=== PATIENT | male | born 1940 | race Caucasian/White ===

== ENCOUNTER 2023-02-17 11:07 | Outpatient (CLI) | payer OTHER, SELFPAY ==
[2023-02-17 13:56] LABS: Chloride* 105 mmol/L (96-114); Potassium* 4.3 mmol/L (3.6-5.1); Sodium* 140 mmol/L (135-149)
[2023-02-17 13:59] LABS: Blood Urea Nitrogen* 19 mg/dL (7-30); Carbon Dioxide* 29 mmol/L (20-32); Cholesterol* 198 mg/dL (90-199); Creatinine* 0.8 mg/dL (0.5-1.5); Estimated Glomerular Filt Rate 88 ml/min; Glucose* 123 mg/dL (60-115); Triglycerides* 178 mg/dL (40-149)
[2023-02-17 14:00] LABS: Calcium* 8.8 mg/dL (8.4-10.6); HDL Cholesterol* 44 mg/dL (>=40); LDL Cholesterol Calculated 118 mg/dL (<100)
[2023-02-17 16:02] LABS: Basophils Absolute Auto 0.05 K/uL (0.00-0.30); Basophils Percent Auto 0.7 % (0.0-3.0); Eosinophils Absolute Auto 0.16 K/uL (0.00-0.50); Eosinophils Percent Auto 2.3 % (0.0-7.0); Hematocrit 56.7 % (37.0-53.0); Hemoglobin* 18.8 gm/dL (13.5-17.5); Immature Granulocytes Abs Auto 0.01 K/uL (0.00-0.30); Immature Granulocytes Pct Auto 0.1 %; Lymphocytes Percent Auto 12.8 % (20-44); Mean Corpuscular HGB Conc 33 gm/dL (32-36); Mean Corpuscular Hemoglobin 33 pg (26-34); Mean Corpuscular Volume 99 fL (80-100); Monocytes Percent Auto 9.2 % (0.0-11.0); Neutrophils Percent Auto 74.9 % (42.0-72.0); Platelet Count* 194 K/uL (140-440); RDW Coefficient of Variation % 12.3 % (11.5-15.5); Red Blood Count 5.75 m/uL (4.30-5.90); Slide Review Reflex No; White Blood Count* 6.97 K/uL (4.50-11.00)
== END 2023-02-17 11:08 | disposition home or self-care (01) ==
LOC: FBOREF 11:09
PROVIDERS: PCP Family Medicine; Visit Provider Family Medicine
DX: E11.9 Type 2 diabetes mellitus without complications (principal); E78.5 Hyperlipidemia, unspecified; I10 Essential (primary) hypertension
CPT/HCPCS: 80048; 80061; 85025

== ENCOUNTER 2023-07-21 15:07 | Outpatient (CLI) | payer OTHER, SELFPAY | END 2023-07-21 15:08 | disposition home or self-care (01) | PROVIDERS: PCP Family Medicine; Visit Provider Family Medicine | DX: I10 Essential (primary) hypertension (principal); E11.9 Type 2 diabetes mellitus without complications; E78.5 Hyperlipidemia, unspecified; E66.01 Morbid (severe) obesity due to excess calories; E55.9 Vitamin D deficiency, unspecified; M10.9 Gout, unspecified | CPT/HCPCS: 80048; 85025 ==

== ENCOUNTER 2024-06-07 15:03 | Outpatient (CLI) | payer OTHER, SELFPAY | END 2024-06-07 15:04 | disposition home or self-care (01) | PROVIDERS: PCP Family Medicine; Visit Provider Family Medicine | DX: E78.5 Hyperlipidemia, unspecified (principal); I10 Essential (primary) hypertension | CPT/HCPCS: 80053; 80061 ==

== ENCOUNTER 2025-04-04 13:50 | Outpatient (CLI) | payer OTHER, SELFPAY | END 2025-04-04 13:51 | disposition home or self-care (01) | LOC: FBOREF 13:52 | PROVIDERS: PCP Family Medicine; Visit Provider Family Medicine | DX: E78.2 Mixed hyperlipidemia (principal); I10 Essential (primary) hypertension; M10.9 Gout, unspecified | CPT/HCPCS: 80048; 80061; 84460; 84550; 85025 ==

== ENCOUNTER 2025-06-07 14:50 | Outpatient (CLI) | payer OTHER, SELFPAY | END 2025-06-07 14:51 | disposition home or self-care (01) | PROVIDERS: PCP Family Medicine; Visit Provider Family Medicine | DX: E78.2 Mixed hyperlipidemia (principal); I10 Essential (primary) hypertension | CPT/HCPCS: 80048; 80061; 85025 ==